=== PATIENT | female | born 1995 | race Caucasian/White ===

== ENCOUNTER 2020-02-05 17:01 | Inpatient (IN) | payer OTHER ==
[~2020-02-05] VITALS: Ht 152.4 cm; Wt 67.4 kg
[2020-02-05 17:17] VITALS: BP 128/81
[2020-02-05] MEDS ORDERED: PRENTAB9 PO (17:29)
[2020-02-05] MEDS ORDERED: TUMS500C PO (17:29)
[2020-02-05] MEDS ORDERED: LACTATED RINGER'S 1000 ML IV STA (18:12)
[2020-02-05] MEDS ORDERED: PENICILLIN G POTASSIUM IV 5 MU in D5W MINI-BAG PLUS 100 ML IV STA (18:12)
[2020-02-05 18:36] LABS: BASO % 0.2 % (0.0-1.0); EOS # 0.1 10^3/uL (0.0-0.5); EOS % 0.5 % (0.0-3.0); HEMATOCRIT 39.3 % (36.0-47.0); HEMOGLOBIN 13.5 g/dl (12.0-15.5); LYMPH # 1.7 10^3/uL (1.5-5.0); LYMPH % 11.9 % (24.0-44.0); MEAN CORPUSCULAR HEMOGLOBIN 31.6 pg (27.0-33.0); MEAN CORPUSCULAR HGB CONC 34.4 g/dl (32.0-36.5); MONO # 0.9 10^3/uL (0.0-0.8); MONO % 6.2 % (0.0-5.0); NEUTROPHILS # 11.2 10^3/uL (1.5-8.5); NEUTROPHILS % 80.3 % (36.0-66.0); PLATELET COUNT, AUTOMATED 133 10^3/uL (150-450); RED BLOOD COUNT 4.27 10^6/uL (4.00-5.40)
--- NOTE | 2020-02-05 18:59 | HPEPDOC ---
Obstetrical History & Physical General Date of Admission February 05, 2020 at 17:38 History of Present Illness Ai is a 24yo at 39+5wks gestation, EDC [id number] by LMP/1TUS, who is wesin g admitted to labor and delivery for gross ROM. She reports that her water broke around 1615 today, clear fluid. She has been pam irregularly for a few days. She endorses excellent movement, denies VB. Her supportive partner is here at the bedside with her. Her blood type is O Negative. She received routine Rhogam [id number]. She is GBS Positive. Her is complicated by A1GDM, very well controlled. She has excessive weight gain of 41lbs. 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: Abnormal Pap (LSIL, repeat due JUL 2020) Past Medical History Medical History O Negative Blood Type Surgical History: Other (mole removed under anesthesia as a child) Family History Significant Family History: Hypertension Social History Marital Status: Family situation: Spouse/partner home Psychosocial History: No pertinent psych hx * Smoker: non-smoker Alcohol: Denies Drugs: denies Abuse Violence Screening Have you been hit/kicked/slapp: No Have you been sexually assault: No Imunizations Tdap status: current Influenza Status: declined Allergies Coded Allergies: No Known Allergies (Unverified , 02/05/20) Medications Scheduled No.137/Iron/Folic Acd ( Vitamin Tablet) 1 Each Tablet, 1 TAB PO DAILY Scheduled PRN Calcium Carbonate (Tums) 200 Mg Tab.chew, 2 TAB PO Q4HP PRN for HEARTBURN Physical Examination Physical Examination GENERAL: Alert and oriented times three. ABDOMEN: Gravid and non-tender to touch. FETUS: Is vertex (VTX) by sterile vaginal examination. HEART RATE: Regular rate. LUNGS: Observed nonlabored breathing. EXTREMITIES: No edema. Vital Signs/I&O O: VSS, afebrile, normotensive VE: 2/90/-2 FHR 135, moderate variability, + accels, early decels noted CTX q 2-5.5 by TOCO, mild by palpation Clear fluid noted on chux and leaking from vagina Laboratory Data 24H LABS Laboratory Tests 2 02/05/20 17:46: Serology Scanned Report Hepatitis B Testing Pertinent Laboratoy Data Blood Type: O- RBC Antibody Screen: Negative HIV: Negative Hepatitis B: Negative Rapid Plasma Reagin: Nonreactive Rubella: Immune Chlamydia/Gonorrhea: Negative Group B Streptococcus: Positive Glucose Tolerance Test: 200 Anatomy Ultrasound Ultrasound Date: Sep 20, 2019 Placenta Location: Anterior Normal Anatomy: Yes Other Ultrasounds Growth US on [id number]: 66%tile Steroid Therapy Steroid Therapy: No Assessment/Plan Assessment A: Ai is a 24yo at 39+5wks gestation being admitted for SROM and early labor; GBS Positive, O Negative Blood Type, A1GDM well controlled; Category I FHT. Plan P: Admit to LND, consented for admission, labor, delivery, PNCG and possible pitocin augmentation. PIV start, admission labs drawn 500mL LR bolus PCNG for GBS prophylaxis Will consider pitocin augmentation if no change once second dose of PCNG has been administered PO and IV hydration Can eat dinner meal Intermittent monitoring with Category I FHT Close monitoring of maternal/ status Anticipate Consult with OB if indicated CHRISTIAN YEE CNM February 05, 2020 18:59
[2020-02-05 19:08] VITALS: BP 135/79
[2020-02-05 20:42] VITALS: BP 128/79
[2020-02-05] MEDS: PENICILLIN G POTASSIUM IV 2.5 MU in IV 1 EA IV SCH (22:30)
[2020-02-05 22:57] VITALS: BP 112/72
[2020-02-06] VITALS (41 sets, daily range): BP systolic 93–143; BP diastolic 51–87
[2020-02-06] MEDS: LR 1,000 ML IV SCH ×2 (00:17→12:36)
--- NOTE | 2020-02-06 00:27 | IPNPDOC ---
Obstetrical Progress Note Date of Service February 06, 2020 Subjective Labor Progress Note: S: Ai is a 24yo at 39+6wks gestation, admitted yesterday early evening for SROM/PROM at 1615, now at 8 hours post ROM. She is still reporting regular contractions, becoming more uncomfortable, and leaking fluid with each contraction; she is up and moving and tolerating well. She reports a very active fetus. Objective O: VSS, afebrile, normotensive FHR 130s-140s, moderate variability, + accels, early decelerations (pt has had Category I FHT with intermittent monitoring) CTX by TOCO q 3-5 minutes VE: 2.5/90/-1, minimal change Vital Signs Date Time Temp Pulse Resp B/P (MAP) Pulse Ox O2 Delivery O2 Flow Rate FiO2 02/05/20 22:57 100 112/72 (85) 02/05/20 19:08 98.4 02/05/20 17:17 18 99 Room Air Assessment Heart Rate Tracing: Category I Sterile Vaginal Examination Postion/Presentation: Cephalic presentation Assessment and Plan Status: Reassuring Group B Streptococcus: Positive Anticipate: Vaginal Delivery Additional Comments A: 24yo at 39+6wks, no labor progress, ROM x8 hours, Category I FHT with overall reassuring status. PCN treatment x2. P: Start Pitocin per low dose protocol IV pain medication ordered if pt desires (stadol/phenergan) CEFM x2 Close monitoring of maternal/ status Safe to proceed Anticipate Consult with OB if indicated CHRISTIAN YEE CNM February 06, 2020 00:27
[2020-02-06] MEDS ORDERED: PROMETHAZINE INJ 25 MG/ML VIAL (J2550) IV ONE (00:30)
[2020-02-06] MEDS ORDERED: OXYTOCIN DRIP 30 UNITS in IV 1 EA IV SCH ×5 (00:30→19:16)
[2020-02-06] MEDS: BUTORPHANOL 2 MG/ML INJ (J0595) IV PRN ×2 (01:10→05:12)
[2020-02-06] MEDS: PENICILLIN G POTASSIUM IV 2.5 MU in IV 1 EA IV SCH ×4 (03:15→15:10)
[2020-02-06] MEDS ORDERED: BUTORPHANOL 2 MG/ML INJ (J0595) IV ONE (14:30)
--- NOTE | 2020-02-06 16:19 | IPNPDOC ---
Text Note Date of Service The patient was seen on 02/06/20. NOTE Intrapartum Note Ai is a 24yo at 39w6d admitted to labor and delivery for PROM yesterday at 1615, clear fluid. She had pitocin started for insufficient labor progress an d was up to 20mu earlier until she had a FHR decel and then pitocin was turned off, but she continued to progress to most recent SCE C/C/0. She has declined epidural through her labor course, has had 3 doses of 1mg stadol IV each. Her blood type is O Negative. She received routine Rhogam [id number]. She is GBS Positive. Her is complicated by A1GDM, very well controlled. She has excessive weight gain of 41lbs Vitals wnl, afebrile Currently Cat I FHRT with very irregular ctx Titrating up pitocin to effect regular ctx and will continue pushing Anticipate soon Dr. Izabel Downing MD VS,Remigio, I+O VS, Remigio, I+O Laboratory Tests 02/05/20 18:21 Vital Signs Date Time Temp Pulse Resp B/P (MAP) Pulse Ox O2 Delivery O2 Flow Rate FiO2 02/06/20 15:37 98.2 69 18 108/69 (82) 02/06/20 14:28 Room Air 02/05/20 17:17 99 I&O- Last 24 Hours up to 6 AM 02/06/20 06:00 Intake Total 500 ml Balance 500 ml Izabel Downing MD February 06, 2020 16:19
[2020-02-06] MEDS ORDERED: OXYTOCIN 30 UNITS IN 0.9% NaCl 500ML IV BAG (J2590) As Ordered ONE (19:03)
--- NOTE | 2020-02-06 19:23 | DNPDOC ---
[facility] Delivery Note Delivery Note DATE OF DELIVERY: 06 Feb 2020 PREDELIVERY DIAGNOSIS: 39w6d PPROM POST DELIVERY DIAGNOSIS: Delivered. PROCEDURE: Spontaneous vaginal delivery CONTENT CREATION MANAGER: Dr. Izabel Downing MD ANESTHESIA: lidocaine 1% for repair ESTIMATED BLOOD LOSS: 200 mL. FINDINGS: 7 pound 7 ounce (3380g) female infant, Score 9/9 DELIVERY SUMMARY: Ai is a 24yo [id number] s/p uncomplicated at 1832 on 02/06/20 when she presented to L&D with PPROM at 39w6d. She received pitocin augmentation and progressed to C/C/0 at which point she began pushing. 's head delivered OA, restituted NOE. Right anterior shoulder delivered with ease followed by right posterior shoulder, then remainder of body delivered (there was a compound left hand) to maternal abdomen where infant was dried and stimulated; nose and mouth suctioned with bulb suction, strong, lusty cry, apgars 9/9. At 2 minutes of life, cord clamped x2 and cut by FOB. taken to warmer for further suctioning. Cord blood collected at this time for MBT O neg. With uterine massage and traction on the cord, placenta delivered spontaneously and intact with 3 vessel centrally inserted cord. Pitocin bolus started with delivery of placenta. Fundus then firm at u-2cm with hemostasis noted. Upon inspection of vagina and perineum, small right sidewall "richy" was noted and repaired with a figure of 8 using 3-0 vicryl suture and then a left labial laceration that moved into the vagina into a sulcal laceration was repaired with 3-0 vicryl suture in usual fashion (after anesthetizing both sites with 1% lidocaine). Good cosmetic effect with total reapproximation and complete hemostasis noted. All counts correct x2. Mom and were doing well when I left the room. MD Salina Dolan Katrina D MD February 06, 2020 19:23
[2020-02-06] MEDS ORDERED: DOCUSATE SODIUM 100 MG CAP PO PRN (19:30)
[2020-02-06] MEDS ORDERED: RHOGAM 300 MCG (1500 IU) INJ (J2790) IM SCH (19:30)
[2020-02-06] MEDS ORDERED: DIBUCAINE 1% OINTMENT 30GM TOP PRN (19:30)
[2020-02-06] MEDS ORDERED: MEASLES,MUMPS,RUBELLA VACCINE INJ (MMR-II) (90707) SC SCH (19:30)
[2020-02-06] MEDS ORDERED: IBUPROFEN 600 MG TAB PO PRN (19:30)
[2020-02-06] MEDS ORDERED: ACETAMINOPHEN TAB 650MG DOSE (2X325MG) PO PRN (19:30)
[2020-02-07] MEDS: ACETAMINOPHEN 500 MG TAB PO PRN (00:42)
[2020-02-07 06:42] VITALS: BP 119/60
[2020-02-07] MEDS: PRENATAL VITAMINS CHEWABLE TABLET PO SCH (08:05)
[2020-02-07] MEDS: IBUPROFEN 800 MG TAB PO PRN ×2 (08:06→18:19)
--- NOTE | 2020-02-07 10:08 | IPNPDOC ---
Progress Note Date of Service: February 07, 2020 Day#: 1 Progress Note PPD 1 SUBJECT: Ai is a 24yo [id number] s/p uncomplicated at 1832 on 02/06/20 when she presented to L&D with PPROM at 39w6d, doing well day # 1. She has been ambulating, voiding spontaneously without issue and tolerating regular diet. Breast feeding without issue. Reports lochia is like a normal period. No f/c/n/v/CP/SOB OBJECTIVE: VITAL SIGNS: Within normal limits, afebrile. Alert and oriented times three. Abdomen: Fundus firm at U-2. Soft, NTTP. Extremities: no pain with palpation of calves ASSESSMENT: Ai is a 24yo [id number] s/p uncomplicated at 1832 on 02/06/20 when she presented to L&D with PPROM at 39w6d, doing well day # 1. Vitals within normal limits, afebrile, hemodynamically stable with no evidence of infection. PLAN: 1. Routine care 2. Tylenol and Motrin for pain. 3. Encourage breast feeding and ambulation. 4. Regular diet 5. Likely discharge home tomorrow if meeting all milestones Dr. Izabel Downing MD VS, I&O, 24H, Fishbone Vital Signs/I&O Vital Signs Date Time Temp Pulse Resp B/P (MAP) Pulse Ox O2 Delivery O2 Flow Rate FiO2 02/07/20 06:42 97.5 76 14 119/60 (79) 02/06/20 14:28 Room Air 02/05/20 17:17 99 I&O- Last 24 Hours up to 6 AM 02/07/20 06:00 Intake Total 4885 ml Output Total 1700 ml Balance 3185 ml Izabel Downing MD February 07, 2020 10:08
[2020-02-07 18:00] VITALS: BP 122/72
[2020-02-08 06:07] VITALS: BP 116/69
--- NOTE | 2020-02-08 07:56 | IPNPDOC ---
Progress Note Date of Service: February 08, 2020 Day#: 2 Progress Note SUBJECT: Ai is a 24yo [id number] s/p uncomplicated at 1832 on 02/06/20 when she presented to L&D with PPROM at 39w6d, doing well day # 2. She has been ambulating, voiding spontaneously without issue and tolerating regular diet. Breast feeding without issue. Reports lochia is like a normal period. No f/c/n/v/CP/SOB OBJECTIVE: VITAL SIGNS: Within normal limits, afebrile. Alert and oriented times three. Abdomen: Fundus firm at U-2. Soft, NTTP. Extremities: no pain with palpation of calves a/p patient is ppd #2, doing well. discharge instructions given. plan for d/c home today. VS, I&O, 24H, Fishbone Vital Signs/I&O Vital Signs Date Time Temp Pulse Resp B/P (MAP) Pulse Ox O2 Delivery O2 Flow Rate FiO2 02/08/20 06:07 97.7 80 19 116/69 (85) 02/06/20 14:28 Room Air 02/05/20 17:17 99 ELSA BLEDSOE DO February 08, 2020 07:56
--- NOTE | 2020-02-08 07:57 | OBDS ---
[facility] Obstetrical Discharge Sum. Obstetrical Discharge Summary : 1 Term: 1 Pre-term: 0 Abortions: 0 Livin VDRL: Non-Reactive Rh: Negative Rubella: Immune Infant Sex: Female Infant Weight: pounds (7), ounces (7) Anesthesia: Local Anesthesia (for repair) A/P, Post Course List any complications Admission diagnosis: Rupture of membranes at 39+5wks. Discharge diagnosis: () Condition at Discharge: stable Discharge Instructions: Home Activity: as tolerated Diet: regular Medications: filled at [facility] Follow-up: 6-8wks Hospital course: Patient admitted for rupture of membranes at term. Patient progressed to have a spontaneous vaginal delivery. course uncomplicated and patient discharged home on day #2. ELSA BLEDSOE DO February 07, 2020 21:47
[2020-02-08] MEDS: PRENATAL VITAMINS CHEWABLE TABLET PO SCH (08:30)
[2020-02-08] MEDS: IBUPROFEN 800 MG TAB PO PRN (08:31)
[2020-02-08] MEDS: ACETAMINOPHEN 500 MG TAB PO PRN (12:35)
== END 2020-02-08 19:00 | disposition home or self-care (01) | DRG 807 ==
LOC: M LDO 17:01 → M LDI 17:38 → M OBS 02-06 21:15
PROVIDERS: ADMIT Registered Nurse Maternal Newborn; ATTEND Registered Nurse Maternal Newborn
PROC: 10E0XZZ Delivery of Products of Conception, External Approach (ICD-10-PCS; principal; 2020-02-06)
PROC: 0HQ9XZZ Repair Perineum Skin, External Approach (ICD-10-PCS; 2020-02-06)
DX: O99.824 Streptococcus B carrier state complicating childbirth (principal); Z37.0 Single live birth; Z3A.39 39 weeks gestation of pregnancy; O24.429 Gestational diabetes mellitus in childbirth, unspecified control; R63.5 Abnormal weight gain; O26.00 Excessive weight gain in pregnancy, unspecified trimester; O42.02 Full-term premature rupture of membranes, onset of labor within 24 hours of rupture; O70.0 First degree perineal laceration during delivery

== ENCOUNTER 2020-03-21 06:40 | Day surgery (SDC) | payer OTHER ==
[~2020-03-21] VITALS: Ht 152.4 cm; Wt 57.2 kg
[2020-03-21] MEDS: LR 1,000 ML IV SCH ×2 (00:40→09:55)
[~2020-03-21 06:40] MED LIST: PRENTAB9 PO; TUMS500C PO
[2020-03-21 07:29] LABS: BASO % 0.4 % (0.0-1.0); EOS # 0.3 10^3/uL (0.0-0.5); EOS % 3.1 % (0.0-3.0); HEMOGLOBIN 12.5 g/dl (12.0-15.5); LYMPH # 1.4 10^3/uL (1.5-5.0); LYMPH % 17.1 % (24.0-44.0); MEAN CORPUSCULAR HEMOGLOBIN 30.6 pg (27.0-33.0); MEAN CORPUSCULAR HGB CONC 33.8 g/dl (32.0-36.5); MEAN CORPUSCULAR VOLUME 90.5 fl (80.0-96.0); MONO # 0.5 10^3/uL (0.0-0.8); MONO % 6.1 % (0.0-5.0); NEUTROPHILS % 73.1 % (36.0-66.0); PLATELET COUNT, AUTOMATED 295 10^3/uL (150-450); RED BLOOD COUNT 4.09 10^6/uL (4.00-5.40); WHITE BLOOD COUNT 8.2 10^3/uL (4.0-10.0)
[2020-03-21 07:51] LABS: ALBUMIN 4.1 GM/DL (3.2-5.2); BILIRUBIN,DIRECT 0.2 MG/DL (0.0-0.2); BILIRUBIN,TOTAL 0.8 MG/DL (0.2-1.0); TOTAL PROTEIN 7.8 GM/DL (6.4-8.2)
--- NOTE | 2020-03-21 08:01 | REPVR ---
PROCEDURE INFORMATION: Exam: US Abdomen, Limited; Right Upper Quadrant Exam date and time: 03/21/2020 7:46 AM Age: 24 years old Clinical indication: Abdominal pain; Additional info: Ruq abd pain, 6 weeks pp TECHNIQUE: Imaging protocol: US abdomen. Real time ultrasound with image documentation. Limited exam focused on the right upper quadrant. COMPARISON: No relevant prior studies available. FINDINGS: Liver: The liver is normal in size ,echotexture and morphology. No discrete focal lesion is seen. Gallbladder: The gallbladder is well distended with multiple small mobile echogenic shadowing gallstones and 4.4 mm diffuse wall thickening and positive sonographic Patel sign, concerning for acute cholecystitis. HIDA scan may be considered for confirmation. Common bile duct: There is no evidence of biliary ductal dilation. The CBD measures 3.4 mm Pancreas: Visualized pancreas is unremarkable. Right kidney: The right kidney is normal in size and echotexture without evidence for calculus or hydronephrosis. No discrete solid or cystic masses are seen. Intraperitoneal space: There is no evidence of free intraperitoneal fluid. IMPRESSION: The gallbladder is well distended with multiple small mobile echogenic shadowing gallstones and 4.4 mm diffuse wall thickening and positive sonographic Patel sign, concerning for acute cholecystitis. HIDA scan may be considered for confirmation. Electronically signed by: Kenyon Phillips On 03/21/2020 08:00:58 AM
[2020-03-21] MEDS ORDERED: PIPERACILLIN/TAZOBACTAM SOD 3.375 GM in D5W MINI-BAG PLUS 50 ML IV ONE (09:15)
[2020-03-21] MEDS ORDERED: MAPA325T8 PO (09:42)
[2020-03-21] MEDS ORDERED: KETOROLAC 30 MG/ML 1ML VIAL IV PRN (10:00)
[2020-03-21] MEDS ORDERED: MORPHINE 2 MG/ML 1ML VIAL (J2270) IV PRN (10:00)
--- NOTE | 2020-03-21 11:38 | REP ---
REASON: Abdominal pain. PRIORS: None. FINDINGS: The superior mediastinal structures are midline. The cardiac silhouette is unremarkable in size, shape, and position. The diaphragmatic surfaces of the lungs are regular, and the costophrenic angles are clear. The pulmonary chand are clear. The imaged osseous structures are intact. IMPRESSION: There is no acute cardiopulmonary disease. Electronically Signed by Donal Dallas DO 03/21/2020 05:24 P
[2020-03-21 12:30] VITALS: BP 124/80
[2020-03-21] MEDS: PIPERACILLIN/TAZOBACTAM SOD 3.375 GM in D5W MINI-BAG PLUS 50 ML IV SCH ×2 (15:52→21:13)
[2020-03-21 16:00] VITALS: BP 115/66
[2020-03-21 21:00] VITALS: BP 112/76
[2020-03-21] MEDS ORDERED: propofoL 200 MG/20 ML VIAL As Ordered ONE (22:14)
[2020-03-21] MEDS ORDERED: ROCURONIUM BROMIDE 50 MG/5 ML VIAL As Ordered ONE (22:14)
[2020-03-21] MEDS ORDERED: LIDOCAINE 2% 100MG/5ML SDV (FOR ANES.) As Ordered ONE (22:14)
[2020-03-21] MEDS ORDERED: MIDAZOLAM INJ 2MG/2ML VIAL (J2250 PER 1MG) As Ordered ONE (22:15)
[2020-03-21] MEDS ORDERED: fentaNYL 100 MCG/2 ML INJECTION (J3010) As Ordered ONE ×2 (22:15→22:55)
[2020-03-21] MEDS ORDERED: BUPIVACAINE HCL 0.25% 30ML VIAL As Ordered ONE (22:18)
[2020-03-21] MEDS ORDERED: dexameTHASONE 4 MG/ML 1ML VIAL (J1100 PER 1MG) As Ordered ONE (22:42)
[2020-03-21] MEDS ORDERED: ACETAMINOPHEN 1000MG 100ML IV BTL (OFIRMEV) (J0131 PER 10MG) As Ordered ONE (22:56)
[2020-03-21] MEDS ORDERED: ESMOLOL INJ 100MG/10ML VIAL As Ordered ONE (22:59)
[2020-03-21] MEDS ORDERED: PHENYLephrine HCL 500 MCG/5 ML (100MCG/ML) SYRINGE (J2370) As Ordered ONE (23:02)
[2020-03-21] MEDS ORDERED: METOCLOPRAMIDE INJ 10MG/2ML VIAL (J2765 PER 1) As Ordered ONE (23:04)
[2020-03-21] MEDS ORDERED: ONDANSETRON 4MG/2ML VIAL As Ordered ONE (23:04)
[2020-03-21] MEDS ORDERED: KETOROLAC 60MG 2ML VIAL As Ordered ONE (23:05)
[2020-03-22] VITALS (9 sets, daily range): BP systolic 100–116; BP diastolic 57–86
[2020-03-22] MEDS ORDERED: ACETAMINOPHEN TAB 650MG DOSE (2X325MG) PO PRN
[2020-03-22] MEDS ORDERED: NORCO, ANEXSIA 5/325MG TABLET (HYDROcodone/ACETAMINOPHEN) PO PRN
[2020-03-22] MEDS ORDERED: LR 1,000 ML IV SCH (00:30)
[2020-03-22] MEDS ORDERED: fentaNYL 100 MCG/2 ML INJECTION (J3010) IV PRN (00:30)
[2020-03-22] MEDS ORDERED: MORPHINE 2 MG/ML 1ML VIAL (J2270) IV PRN (00:30)
[2020-03-22] MEDS ORDERED: PERCOCET 5MG/325MG TAB PO PRN (00:30)
[2020-03-22] MEDS ORDERED: ONDANSETRON 4MG/2ML VIAL IV PRN (00:30)
[2020-03-22] MEDS: PIPERACILLIN/TAZOBACTAM SOD 3.375 GM in D5W MINI-BAG PLUS 50 ML IV SCH ×2 (03:19→08:43)
[2020-03-22 08:50] LABS: BASO % 0.1 % (0.0-1.0); HEMATOCRIT 34.5 % (36.0-47.0); HEMOGLOBIN 11.8 g/dl (12.0-15.5); LYMPH # 0.9 10^3/uL (1.5-5.0); LYMPH % 10.2 % (24.0-44.0); MEAN CORPUSCULAR HEMOGLOBIN 30.4 pg (27.0-33.0); MEAN CORPUSCULAR HGB CONC 34.2 g/dl (32.0-36.5); MEAN CORPUSCULAR VOLUME 88.9 fl (80.0-96.0); MONO # 0.2 10^3/uL (0.0-0.8); NEUTROPHILS # 7.4 10^3/uL (1.5-8.5); NEUTROPHILS % 87.3 % (36.0-66.0); PLATELET COUNT, AUTOMATED 285 10^3/uL (150-450); RED BLOOD COUNT 3.88 10^6/uL (4.00-5.40); WHITE BLOOD COUNT 8.5 10^3/uL (4.0-10.0)
--- NOTE | 2020-03-23 08:29 | IPN ---
DATE: 03/22/2020 HISTORY: The patient is now postoperative day #1 from a laparoscopic cholecystectomy for acute cholecystitis. Her surgery was finished just before midnight last night. She has done well since then. She denies any significant abdominal pain and has taken no pain medications. She is tolerating a regular diet. She is voiding well and reports passage of a small amount of flatus. She has no nausea or vomiting. Vital signs show that she has been afebrile since surgery. Her pulse is generally in the 70s to 80s and her blood pressure is good. Room air oxygen saturations are normal. Intake and output show that she has taken clear liquids well and has been advanced to a regular diet. She has a good urine output. PHYSICAL EXAMINATION: The patient is alert and appears comfortable lying quietly on the hospital bed. Heart exam shows a regular rhythm and she is not tachycardiac. The lungs are clear. The abdomen is flat and she has active bowel sounds. Her dressings are clean and dry. LABORATORY STUDIES: This morning, showed a white count of 8, hemoglobin of 12, hematocrit 34 and platelet count of 285,000. IMPRESSION: The patient is doing well now 10-12 hours postoperative from her laparoscopic cholecystectomy for acute cholecystitis. She is tolerating a diet well and has stable vital signs. PLAN: The patient will be discharged home today. I will not provide her with a prescription for any pain medication as she has not required any here in the hospital. She could take Tylenol as needed. She should continue to pump and discard her breast milk until this evening and can then resume breast-feeding. She was advised to avoid any strenuous activity or heavy lifting for the next 2 weeks. She should call my office for any problems and return routinely in about 10 days for a routine postoperative check. GOPAL
--- NOTE | 2020-03-27 23:34 | RO ---
DATE OF PROCEDURE: 03/21/2020 PREOPERATIVE DIAGNOSIS: Cholelithiasis with acute cholecystitis. POSTOPERATIVE DIAGNOSIS: Cholelithiasis with acute cholecystitis. PROCEDURE PERFORMED: Laparoscopic cholecystectomy. SURGEON: Jun Hdz MD VARSITY BASEBALL COACH: ANESTHESIA: General. INDICATIONS FOR THE PROCEDURE: The patient is a 24-year-old woman who is approximately 6 weeks . She noted the onset of upper abdominal pain late on the evening of 03/20/2020. This became quite severe and was accompanied by some nausea and vomiting. She presented to the emergency department on the morning of 03/21/2020 with persistent pain. She was found to have tenderness in the right upper quadrant. A gallbladder ultrasound showed cholelithiasis with some gallbladder wall thickening and a sonographic Patel's sign. I was consulted. The patient was diagnosed with acute cholecystitis, and she is now for a laparoscopic cholecystectomy. DESCRIPTION OF PROCEDURE: The patient was brought to the operating room and placed on the table in a supine position. She was placed under general endotracheal anesthesia. The abdomen was prepped and draped in a sterile fashion. 0.25% Marcaine was infiltrated at each of the trocar sites as needed. Initial entry to the abdomen was in the left upper quadrant. A short transverse incision was made and the Veress needle was inserted. After a positive hanging drop test, the abdomen was insufflated with carbon dioxide gas. A 5 mm port was placed over a 5 mm scope and advanced through the abdominal wall without difficulty. Initial examination showed no evidence of Veress needle or trocar injury. The liver appeared normal. Visualized portions of the stomach and small and large bowel appeared normal. Portion of the fundus of the gallbladder was seen. An 11 mm port was placed just above the umbilicus and two additional 5 mm ports were placed in the right upper quadrant. Graspers were inserted, and the edge of the liver was elevated. The gallbladder was found to be quite thickened and edematous. This was grasped and elevated. Dissection was begun in the pericholecystic tissues at the gallbladder neck. The cholecystic artery was identified, and this was doubly clipped with hemoclips and divided. Cystic duct was then clearly identified and doubly clipped with hemoclips and divided as well. The gallbladder was then dissected free from the gallbladder bed using cautery dissection. There was, as noted previously, some significant edema in the pericholecystic tissues, which slowed dissection slightly. The gallbladder was not perforated in the course of dissection. The gallbladder was placed in an Endopouch. The right upper quadrant was irrigated and inspected, and there was no evidence of bleeding or bile leak. The patient had been tilted to a reverse Trendelenburg position for the surgery, and she was then flattened at the conclusion of the dissection. The abdomen was deflated, and the trocars were all removed. The gallbladder was recovered through the supraumbilical site. The fascia at the supraumbilical site was closed with interrupted simple sutures of #2-0 Vicryl. The skin incisions were all closed with buried #4-0 Vicryl and Steri-Strips. Light dressings were applied. The patient tolerated the procedure well without apparent complication. She was awakened in the operating room, extubated and moved to the recovery room in stable condition.
== END 2020-03-22 13:50 | disposition home or self-care (01) ==
LOC: M ED 06:40 → M SDC 06:41 → ENRESERV 10:05 → M PED 12:30 → M SDC 03-22 13:50
PROVIDERS: ATTEND Surgery
DX: K81.0 Acute cholecystitis (principal)
CPT/HCPCS: 36415; 47562; 71046; 76705; 80047; 80076; 83690; 85025; 88304; 96365; 96366; 99284; J0131; J1100; J1885; J2250; J2370; J2405; J2543; J2765; J3010; U0002